=== PATIENT | male | born 1940 | race Caucasian/White ===

== ENCOUNTER 2017-05-22 21:22 | Emergency (ER) | payer MEDICARE, BC ==
[~2017-05-22] VITALS: Ht 185.4 cm; Wt 83.9 kg
[~2017-05-22 21:22] MED LIST: AMLO-96 PO; AMLO-99 PO; DOCU-416 PO; HCTZ25 PO; HYDR-317 PO; HYDR-4309 PO; LIS20 PO; OXYB10TA21 PO; PHEN200T32 PO; TAM4 PO; TAMS0.4C70 PO
--- NOTE | 2017-05-22 21:40 | ER Report ---
History and Physical Time Seen By MD: 21:39 Hx. of Stated Complaint: PATIENT HAD PROCEDURE WHERE THEY INSERTED BCG INTO BLADDER YESTERDAY AT 1100AM. PATIENT STARTED HAVING BRIGHT RED BLOOD AND SMALL CLOTS PASS IN URINE, PATIENT HAS BURING AND FREQUENCY WITH URINATION. HPI/ROS CHIEF COMPLAINT: hematuria HISTORY OF PRESENT ILLNESS: This is a 77 year old male. He is having hematuria with clots. Had BCG into bladder yesterday at [address] Zazueta's office. Had been feeling fine until tonight when he started having some pink urine that progressed to red blood and clots. He has mild suprapubic discomfort. Having frequency and burning. No fevers. No other bleeding such as blood in the stool, bruising, other bleeding. No back/flank pain. Allergies: Coded Allergies: No Known Drug Allergies (Verified , 05/22/17) Home Meds Active Scripts Amoxicillin/Pot Clav 875-125 Mg Tab (AUGMENTIN 875-125 TABLET) 1 Each Tablet, 1 TAB PO Q12H for 5 Days, #10 TAB 0 Refills Prov:CORAZON RODRÍGUEZ MD 05/22/17 Tamsulosin Hcl (TAMSULOSIN HCL) 0.4 Mg Cap.er.24h, 0.4 MG PO DAILY, #30 CAP 11 Refills Prov:JANEEN LISA TERRAZZO WORKER APPRENTICE-BC, ONC 07/10/16 Reported Medications Amlodipine Besylate (AMLODIPINE BESYLATE) 10 Mg Tablet, 1 TAB PO QPM, TAB 03/21/17 Lisinopril (Prinivil) 20 Mg Tab, 40 MG PO QPM, #20 0 Refills 04/22/08 Discontinued Reported Medications Phenazopyridine Hcl (PHENAZOPYRIDINE HCL) 200 Mg Tablet, 200 MG PO TID Y for PAIN, #20 TAB 03/24/17 Docusate Sodium (COLACE) 100 Mg Capsule, 100 MG PO BID, #30 CAPSULE 03/24/17 Oxybutynin Chloride (DITROPAN XL) 10 Mg Tab.er.24, 10 MG PO QDAY Y for BLADDER SPASMS, #10 TAB 03/24/17 Hydrocodone Bit/Acetaminophen (NORCO 5-325 TABLET) 1 Each Tablet, 1-2 EACH PO Q6H Y for PAIN, TAB 03/24/17 Reviewed Nurses Notes: Yes Hx Smoking: No (8-10 YEAR SMOKER, QUIT 30YRS AGO) Smoking Status: Former Smoker Hx Substance Use Disorder: No Hx Alcohol Use: Yes (OCC) Constitutional Vital Sign - Last 24 Hours 05/22/17 05/22/17 05/22/17 05/22/17 21:30 21:30 21:37 21:52 Temp 97.1 Pulse 94 84 77 Resp 20 B/P (MAP) 175/94 173/90 (117) Pulse Ox 91 92 94 05/22/17 05/22/17 05/22/17 05/22/17 22:01 22:07 22:22 22:30 Pulse 81 ??? B/P (MAP) 188/80 (116) 127/76 (93) Pulse Ox 92 92 05/22/17 05/22/17 05/22/17 05/22/17 22:52 23:00 23:07 23:25 Pulse 80 72 79 B/P (MAP) 136/65 (88) Pulse Ox 94 88 92 05/22/17 23:30 B/P (MAP) 155/85 (108) Physical Exam General Appearance: The patient is alert, has no immediate need for airway protection and no current signs of toxicity. Respiratory: Breathing easily, clear to auscultation. Cardiac: regular rate and rhythm Gastrointestinal: Abdomen is soft, discomfort in the suprapubic area. No CVA tenderness. Skin: No bruising. DIFFERENTIAL DIAGNOSIS: After history and physical exam differential diagnosis was considered for hematuria, will check urinalysis and CBC and PT/PTT. Medical Decision Making Data Points Result Diagram: 05/22/17222505/22/172225 Laboratory Hematology Test 05/22/17 22:04 05/22/17 22:26 Urine Color Red Urine Clarity Cloudy Urine pH 6.0 pH (4.8-9.5) Urine Specific Hume 1.011 Urine Protein 100 mg/dL (NEGATIVE) Urine Glucose (UA) 50 mg/dL (NEGATIVE) Urine Ketones Negative mg/dL (NEGATIVE) Urine Blood Large (NEGATIVE) Urine Nitrite Positive (NEGATIVE) Urine Bilirubin Negative (NEGATIVE) Urine Urobilinogen Negative mg/dL (0.2-1.9) Urine Leukocyte Esterase Moderate (NEGATIVE) Urine RBC 52253 /HPF (0-2/HPF) Urine WBC 710 /HPF (0-5/HPF) Urine Squamous Epithelial Cells None /LPF (</=FEW) Urine Bacteria Moderate /HPF (NONE-FEW) Urine Mucus Few /HPF (NONE-FEW) Red Blood Count 5.05 M/uL (4.00-5.60) Mean Corpuscular Volume 90.4 fL (80.0-96.0) Mean Corpuscular Hemoglobin 31.0 pg (26.0-33.0) Mean Corpuscular Hemoglobin Concent 34.3 g/dL (32.0-36.0) Red Cell Distribution Width 13.2 % (11.5-14.5) Mean Platelet Volume 7.6 fL (7.2-11.1) Neutrophils (%) (Auto) 86.6 % (39.4-72.5) Lymphocytes (%) (Auto) 5.5 % (17.6-49.6) Monocytes (%) (Auto) 6.9 % (4.1-12.4) Eosinophils (%) (Auto) 0.2 % (0.4-6.7) Basophils (%) (Auto) 0.8 % (0.3-1.4) Nucleated RBC Relative Count (auto) 0.0 /100WBC Neutrophils # (Auto) 9.2 K/uL (2.0-7.4) Lymphocytes # (Auto) 0.6 K/uL (1.3-3.6) Monocytes # (Auto) 0.7 K/uL (0.3-1.0) Eosinophils # (Auto) 0.0 K/uL (0.0-0.5) Basophils # (Auto) 0.1 K/uL (0.0-0.1) Nucleated RBC Absolute Count (auto) 0.00 K/uL Prothrombin Time 13.0 seconds (12.0-14.4) Prothromb Time International Ratio 0.98 Activated Partial Thromboplast Time 33 seconds (23-35) Fibrinogen 324 mg/dL (169-449) D-Dimer Quantitative (PE/DVT) 0.80 ug/ml (0-0.50) Sodium Level 136 mmol/L (137-145) Potassium Level 3.9 mmol/L (3.5-5.0) Chloride Level 101 mmol/L (98-107) Carbon Dioxide Level 24 mmol/L (22-30) Blood Urea Nitrogen 13 mg/dl (9-21) Creatinine 0.90 mg/dl (0.66-1.25) Glomerular Filtration Rate Calc > 60.0 Random Glucose 101 mg/dl (75-110) Calcium Level 9.3 mg/dl (8.4-10.2) Total Bilirubin 0.6 mg/dl (0.2-1.3) Aspartate Amino Transf (AST/SGOT) 22 U/L (0-35) Alanine Aminotransferase (ALT/SGPT) 29 U/L (0-56) Alkaline Phosphatase 68 U/L (0-126) Total Protein 7.1 gm/dl (6.3-8.2) Albumin 4.1 g/dl (3.5-5.0) Chemistry Test 05/22/17 22:04 05/22/17 22:26 Urine Color Red Urine Clarity Cloudy Urine pH 6.0 pH (4.8-9.5) Urine Specific Hume 1.011 Urine Protein 100 mg/dL (NEGATIVE) Urine Glucose (UA) 50 mg/dL (NEGATIVE) Urine Ketones Negative mg/dL (NEGATIVE) Urine Blood Large (NEGATIVE) Urine Nitrite Positive (NEGATIVE) Urine Bilirubin Negative (NEGATIVE) Urine Urobilinogen Negative mg/dL (0.2-1.9) Urine Leukocyte Esterase Moderate (NEGATIVE) Urine RBC 09155 /HPF (0-2/HPF) Urine WBC 710 /HPF (0-5/HPF) Urine Squamous Epithelial Cells None /LPF (</=FEW) Urine Bacteria Moderate /HPF (NONE-FEW) Urine Mucus Few /HPF (NONE-FEW) White Blood Count 10.7 k/uL (4.5-11.0) Red Blood Count 5.05 M/uL (4.00-5.60) Hemoglobin 15.7 g/dL (14.0-18.0) Hematocrit 45.7 % (42.0-52.0) Mean Corpuscular Volume 90.4 fL (80.0-96.0) Mean Corpuscular Hemoglobin 31.0 pg (26.0-33.0) Mean Corpuscular Hemoglobin Concent 34.3 g/dL (32.0-36.0) Red Cell Distribution Width 13.2 % (11.5-14.5) Platelet Count 251 K/uL (150-450) Mean Platelet Volume 7.6 fL (7.2-11.1) Neutrophils (%) (Auto) 86.6 % (39.4-72.5) Lymphocytes (%) (Auto) 5.5 % (17.6-49.6) Monocytes (%) (Auto) 6.9 % (4.1-12.4) Eosinophils (%) (Auto) 0.2 % (0.4-6.7) Basophils (%) (Auto) 0.8 % (0.3-1.4) Nucleated RBC Relative Count (auto) 0.0 /100WBC Neutrophils # (Auto) 9.2 K/uL (2.0-7.4) Lymphocytes # (Auto) 0.6 K/uL (1.3-3.6) Monocytes # (Auto) 0.7 K/uL (0.3-1.0) Eosinophils # (Auto) 0.0 K/uL (0.0-0.5) Basophils # (Auto) 0.1 K/uL (0.0-0.1) Nucleated RBC Absolute Count (auto) 0.00 K/uL Prothrombin Time 13.0 seconds (12.0-14.4) Prothromb Time International Ratio 0.98 Activated Partial Thromboplast Time 33 seconds (23-35) Fibrinogen 324 mg/dL (169-449) D-Dimer Quantitative (PE/DVT) 0.80 ug/ml (0-0.50) Glomerular Filtration Rate Calc > 60.0 Calcium Level 9.3 mg/dl (8.4-10.2) Total Bilirubin 0.6 mg/dl (0.2-1.3) Aspartate Amino Transf (AST/SGOT) 22 U/L (0-35) Alanine Aminotransferase (ALT/SGPT) 29 U/L (0-56) Alkaline Phosphatase 68 U/L (0-126) Total Protein 7.1 gm/dl (6.3-8.2) Albumin 4.1 g/dl (3.5-5.0) Coagulation Test 05/22/17 22:26 Prothrombin Time 13.0 seconds Prothromb Time International Ratio 0.98 Activated Partial Thromboplast Time 33 seconds Fibrinogen 324 mg/dL D-Dimer Quantitative (PE/DVT) 0.80 ug/ml Urinalysis Test 05/22/17 22:04 Urine Color Red Urine Clarity Cloudy Urine pH 6.0 pH (4.8-9.5) Urine Specific Hume 1.011 Urine Protein 100 mg/dL (NEGATIVE) Urine Glucose (UA) 50 mg/dL (NEGATIVE) Urine Ketones Negative mg/dL (NEGATIVE) Urine Blood Large (NEGATIVE) Urine Nitrite Positive (NEGATIVE) Urine Bilirubin Negative (NEGATIVE) Urine Urobilinogen Negative mg/dL (0.2-1.9) Urine Leukocyte Esterase Moderate (NEGATIVE) Urine RBC 59764 /HPF (0-2/HPF) Urine WBC 710 /HPF (0-5/HPF) Urine Squamous Epithelial Cells None /LPF (</=FEW) Urine Bacteria Moderate /HPF (NONE-FEW) Urine Mucus Few /HPF (NONE-FEW) ED Course/Re-evaluation ED Course After labs obtained, called and spoke with Dr. Zazueta regarding symptoms and the recent treatment to see if anything specific was needed based on the recent treatment. This response would not be typical for the BCG treatment, and we suspect that he could have a cystitis based on the urinalysis. A broad spectrum antibiotic was ordered and urine will be cultured. The patient will follow-up with Dr. Zazueta. Decision to Disposition Date: May 22, 2017 Decision to Disposition Time: 23:27 Depart Departure Latest Vital Signs Vital Signs Date Time Temp Pulse Resp B/P (MAP) Pulse Ox O2 Delivery O2 Flow Rate FiO2 05/22/17 23:30 155/85 (108) 05/22/17 23:25 79 92 05/22/17 21:30 97.1 20 Impression: Primary Impression: Hematuria Condition: Improved Disposition: HOME OR SELF-CARE Referrals: DAPHNE DOHERTY MD (PCP) New Scripts Amoxicillin/Pot Clav 875-125 Mg Tab (AUGMENTIN 875-125 TABLET) 1 Each Tablet 1 TAB PO Q12H for 5 Days, #10 TAB 0 Refills Prov: CORAZON RODRÍGUEZ MD 05/22/17 Patient Instructions: Hematuria (ED), Urinary Tract Infection in Men (ED) Additional Instructions: Start Augmentin 875/125 twice a day for [address] Zazueta tomorrow for further follow-up instructions. Problem Qualifiers Primary Impression: Hematuria Hematuria type: unspecified type Qualified Codes: R31.9 - Hematuria, unspecified CORAZON RODRÍGUEZ MD May 22, 2017 21:40
[2017-05-22 22:38] LABS: PLATELET COUNT, AUTOMATED 251 K/uL (150-450)
[2017-05-22 22:58] LABS: INR 0.98
[2017-05-22] MEDS ORDERED: AMOX-559 PO (23:28)
[2017-05-22 23:30] VITALS: BP 155/85
[2017-05-22] MEDS ORDERED: AMOX/CLAV 875 MG TAB PO ONE (23:30)
== END 2017-05-22 23:43 | disposition home or self-care (01) ==
LOC: ER 21:35
DX: R31.9 Hematuria, unspecified (principal); B96.20 Unspecified Escherichia coli [E. coli] as the cause of diseases classified elsewhere
CPT/HCPCS: 81001; 85025; 85049; 85379; 85384; 85610; 85730; 87077; 87088; 87186; 99284; A9270; 82040; 82247; 82310; 82374; 82435; 82565; 82947; 84075; 84132; 84155; 84295; 84450; 84460; 84520

== ENCOUNTER 2017-09-28 16:45 | Emergency (ER) | payer MEDICARE, BC ==
[~2017-09-28 16:45] MED LIST changes: +AMOX-559 PO
--- NOTE | 2017-09-28 16:55 | ER Report ---
History and Physical Time Seen By MD: 16:54 Hx. of Stated Complaint: PT PRESENT SWITH A SWOLLEN FINGER. HAD BLOOD BLISTER ON FRIDAY THAT BURST TODAY,NOW HIS FINGER IS SWOLLEN AND HURTING HPI/ROS CHIEF COMPLAINT: Finger injury HISTORY OF PRESENT ILLNESS: This is a 77-year-old male who presents to the emergency department for a left index finger injury. Patient states that Friday he pinched his finger in a vice does not think there was any foreign body and it up with a blood blister to the base of the left index finger. Then today around noon there was some swelling to the base of the left index finger around the wound, patient states that since then the finger has become to swell, uncomfortable and warm to touch. Patient denies aches, chills, nausea, vomiting , diarrhea. No chest pain or shortness of breath. REVIEW OF SYSTEMS: Respiratory: No cough, no dyspnea. Cardiovascular: No chest pain, no palpitations. Gastrointestinal: No vomiting, no abdominal pain. Musculoskeletal: As above. Integumentary: As above. Allergies: Coded Allergies: No Known Drug Allergies (Verified , 09/28/17) Home Meds Active Scripts Hydrocodone Bit/Acetaminophen (NORCO 5-325 TABLET) 1 Each Tablet, 1 EACH PO Q4- 6H Y for PAIN, #10 TAB Prov:CORRY TINAJERO [facility]-BC 09/28/17 Ondansetron (ZOFRAN ODT) 4 Mg Tab.rapdis, 4 MG PO Q6H Y for NAUSEA/VOMITING, # 20 TAB.ROBERTH Prov:CORRY TINAJERO [facility]-BC 09/28/17 Sulfamethoxazole/Trimet 800-160 Mg Tab (BACTRIM DS TABLET) 1 Each Tablet, 1 TAB PO Q12H, #19 TAB 0 Refills First dose given in the ED. Prov:CORRY TINAJERO [facility]-BC 09/28/17 Tamsulosin Hcl (TAMSULOSIN HCL) 0.4 Mg Cap.er.24h, 0.4 MG PO DAILY, #30 CAP 11 Refills Prov:JANEEN LISA EVICTION SPECIALIST-BC, ONC 07/09/17 Reported Medications Amlodipine Besylate (AMLODIPINE BESYLATE) 10 Mg Tablet, 1 TAB PO QPM, TAB 03/21/17 Lisinopril (Prinivil) 20 Mg Tab, 40 MG PO QPM, #20 0 Refills 04/22/08 Discontinued Scripts Amoxicillin/Pot Clav 875-125 Mg Tab (AUGMENTIN 875-125 TABLET) 1 Each Tablet, 1 TAB PO Q12H for 5 Days, #10 TAB 0 Refills Prov:CORAZON RODRÍGUEZ MD 05/22/17 Past Medical/Surgical History Patient has a past medical and surgical history of hypertension, GERD, prostate cancer, sciatic pain, arthritis, mapping and sees a prostate, appendectomy, TURP. Reviewed Nurses Notes: Yes Hx Smoking: No (8-10 YEAR SMOKER, QUIT 30YRS AGO) Smoking Status: Former Smoker Hx Substance Use Disorder: No Hx Alcohol Use: Yes (OCC) Constitutional Vital Sign - Last 24 Hours 09/28/17 09/28/17 09/28/17 09/28/17 16:51 16:58 17:00 18:24 Temp 98.2 Pulse 72 81 Resp 20 B/P (MAP) 162/85 162/85 (110) 168/88 (114) 128/101 (110) Pulse Ox 93 95 O2 Delivery Room Air 09/28/17 09/28/17 09/28/17 09/28/17 18:30 18:35 18:53 19:05 Pulse 82 78 84 Resp 10 B/P (MAP) 162/93 (116) 162/73 (102) Pulse Ox 94 94 87 09/28/17 09/28/17 09/28/17 09/28/17 19:20 19:25 19:30 19:35 Pulse 81 83 76 79 Resp 42 25 10 24 B/P (MAP) 149/69 (95) Pulse Ox 95 96 92 93 09/28/17 09/28/17 09/28/17 09/28/17 19:40 19:45 20:00 20:15 Pulse 77 82 78 80 Resp 5 15 B/P (MAP) 131/69 (89) Pulse Ox 94 88 93 87 09/28/17 09/28/17 09/28/17 09/28/17 20:30 20:45 20:55 20:59 Temp 99.6 Pulse 79 Pulse Ox 94 94 93 O2 Delivery Room Air Physical Exam General Appearance: The patient is alert, has no immediate need for airway protection and no current signs of toxicity. Eyes: Pupils equal and round no injection. Respiratory: Chest is non tender, lungs are clear to auscultation. Cardiac: regular rate and rhythm. Gastrointestinal: Abdomen is soft and non tender, no masses, bowel sounds normal. Musculoskeletal: Neck: Neck is supple and non tender. Extremities have full range of motion and are non tender. Skin: Erythema, edema small amount of serous drainage from the wound of the base of the left index finger. Skin is very taut. CMS intact. DIFFERENTIAL DIAGNOSIS: After history and physical exam differential diagnosis was considered for cellulitis, septic joint and foreign body. Medical Decision Making Data Points Result Diagram: 09/28/178 09/28/178 Laboratory Hematology Test 09/28/17 18:48 Red Blood Count 5.11 M/uL (4.00-5.60) Mean Corpuscular Volume 90.2 fL (80.0-96.0) Mean Corpuscular Hemoglobin 31.4 pg (26.0-33.0) Mean Corpuscular Hemoglobin Concent 34.8 g/dL (32.0-36.0) Red Cell Distribution Width 13.3 % (11.5-14.5) Mean Platelet Volume 7.9 fL (7.2-11.1) Neutrophils (%) (Auto) 83.5 % (39.4-72.5) Lymphocytes (%) (Auto) 6.5 % (17.6-49.6) Monocytes (%) (Auto) 9.1 % (4.1-12.4) Eosinophils (%) (Auto) 0.5 % (0.4-6.7) Basophils (%) (Auto) 0.4 % (0.3-1.4) Nucleated RBC Relative Count (auto) 0.2 /100WBC Neutrophils # (Auto) 7.4 K/uL (2.0-7.4) Lymphocytes # (Auto) 0.6 K/uL (1.3-3.6) Monocytes # (Auto) 0.8 K/uL (0.3-1.0) Eosinophils # (Auto) 0.0 K/uL (0.0-0.5) Basophils # (Auto) 0.0 K/uL (0.0-0.1) Nucleated RBC Absolute Count (auto) 0.02 K/uL Sodium Level 139 mmol/L (137-145) Potassium Level 3.6 mmol/L (3.5-5.0) Chloride Level 101 mmol/L (98-107) Carbon Dioxide Level 25 mmol/L (22-30) Blood Urea Nitrogen 14 mg/dl (9-21) Creatinine 1.00 mg/dl (0.66-1.25) Glomerular Filtration Rate Calc > 60.0 Random Glucose 99 mg/dl (75-110) Calcium Level 9.3 mg/dl (8.4-10.2) Total Bilirubin 0.8 mg/dl (0.2-1.3) Aspartate Amino Transf (AST/SGOT) 32 U/L (0-35) Alanine Aminotransferase (ALT/SGPT) 31 U/L (0-56) Alkaline Phosphatase 74 U/L (0-126) Total Protein 7.2 gm/dl (6.3-8.2) Albumin 4.2 g/dl (3.5-5.0) Chemistry Test 09/28/17 18:48 White Blood Count 8.9 k/uL (4.5-11.0) Red Blood Count 5.11 M/uL (4.00-5.60) Hemoglobin 16.1 g/dL (14.0-18.0) Hematocrit 46.1 % (42.0-52.0) Mean Corpuscular Volume 90.2 fL (80.0-96.0) Mean Corpuscular Hemoglobin 31.4 pg (26.0-33.0) Mean Corpuscular Hemoglobin Concent 34.8 g/dL (32.0-36.0) Red Cell Distribution Width 13.3 % (11.5-14.5) Platelet Count 196 K/uL (150-450) Mean Platelet Volume 7.9 fL (7.2-11.1) Neutrophils (%) (Auto) 83.5 % (39.4-72.5) Lymphocytes (%) (Auto) 6.5 % (17.6-49.6) Monocytes (%) (Auto) 9.1 % (4.1-12.4) Eosinophils (%) (Auto) 0.5 % (0.4-6.7) Basophils (%) (Auto) 0.4 % (0.3-1.4) Nucleated RBC Relative Count (auto) 0.2 /100WBC Neutrophils # (Auto) 7.4 K/uL (2.0-7.4) Lymphocytes # (Auto) 0.6 K/uL (1.3-3.6) Monocytes # (Auto) 0.8 K/uL (0.3-1.0) Eosinophils # (Auto) 0.0 K/uL (0.0-0.5) Basophils # (Auto) 0.0 K/uL (0.0-0.1) Nucleated RBC Absolute Count (auto) 0.02 K/uL Glomerular Filtration Rate Calc > 60.0 Calcium Level 9.3 mg/dl (8.4-10.2) Total Bilirubin 0.8 mg/dl (0.2-1.3) Aspartate Amino Transf (AST/SGOT) 32 U/L (0-35) Alanine Aminotransferase (ALT/SGPT) 31 U/L (0-56) Alkaline Phosphatase 74 U/L (0-126) Total Protein 7.2 gm/dl (6.3-8.2) Albumin 4.2 g/dl (3.5-5.0) EKG/Imaging Imaging EXAMINATION: Left hand radiographs 3 views HISTORY: Evaluate for foreign body to the left index finger. Swelling. Infection. COMPARISON: None. FINDINGS: PA, lateral and oblique views of the left hand are obtained. Bones: The cortical margins of the bones are intact. Joint spaces: Negative. Hardware: None. Alignment: Normal. Soft tissues: There is soft tissue swelling of the second finger. No radiodense foreign body is identified. IMPRESSION: Soft tissue swelling of the left second finger. No radiodense foreign body is identified. Report Dictated By: Nickolas Hawkins MD at 09/28/2017 6:41 PM Report E-Signed By: Nickolas Hawkins MD at 09/28/2017 6:43 PM WSN:[id number] ED Course/Re-evaluation Clinical Indication for ER IV: IV Access ED Course The patient was admitted to room. A history and physical were obtained. Differential diagnoses were considered. Initially I a started with a hand x-ray which was negative for foreign body. The patient and his state that the swelling and the pain in the finger have increased. I did elect to start an IV, obtained a CBC, CMP labs studies unremarkable. Patient was given 1 g IV Rocephin , 4 mg IV morphine, 4 mg IV Zofran. Patient states he is still feeling nauseous was given another dose of 4 mg IV Zofran. Patient was also given 1 hydrocodone in the emergency department as well as 1 Bactrim. Patient states that he continues to have discomfort in that finger and his is concerned that this is going to continue to get worse. I did tell them that he will likely have some increased swelling however with the IV antibiotics and oral antibiotics on board the infection will begin to tiffanie. I did tell the patient to keep the finger elevated, apply a warm compress to the finger. The patient was sent home with a home pack of hydrocodone and Bactrim as well as Zofran. A prescription was sent to the patient's pharmacy for hydrocodone and Bactrim and Zofran. I did tell the patient that I like him to return in at least 24 hours for reevaluation of the finger. I did have Dr. Rowley evaluate finger as well. Patient remained afebrile, vital signs stable while in the emergency department. The patient had no other questions or concerns at this time and was discharged home. 09/28/2017 6:37:26 pm I did go into to the patient that I didn't see a foreign body on x-ray, patient states that the pain has increased the swelling is increased and the redness has increased even since arriving to the ED. Go ahead and start an IV draw some blood and the patient some IV antibiotics and pain medication. Decision to Disposition Date: September 28, 2017 Decision to Disposition Time: 20:56 Depart Departure Latest Vital Signs Vital Signs Date Time Temp Pulse Resp B/P (MAP) Pulse Ox O2 Delivery O2 Flow Rate FiO2 09/28/17 20:59 99.6 09/28/17 20:55 93 Room Air 09/28/17 20:30 79 09/28/17 19:45 15 131/69 (89) Impression: Primary Impression: Cellulitis of right index finger Condition: Improved Disposition: HOME OR SELF-CARE Referrals: DAPHNE DOHERTY MD (PCP) New Scripts Hydrocodone Bit/Acetaminophen (NORCO 5-325 TABLET) 1 Each Tablet 1 EACH PO Q4-6H Y for PAIN, #10 TAB Prov: CORRY TINAJERO EVICTION SPECIALIST-BC 09/28/17 Ondansetron (ZOFRAN ODT) 4 Mg Tab.rapdis 4 MG PO Q6H Y for NAUSEA/VOMITING, #20 TAB.ROBERTH Prov: CORRY TINAJERO [facility] 09/28/17 Sulfamethoxazole/Trimet 800-160 Mg Tab (BACTRIM DS TABLET) 1 Each Tablet 1 TAB PO Q12H, #19 TAB 0 Refills First dose given in the ED. Prov: CORRY TINAJERO EVICTION SPECIALIST-BC 09/28/17 Patient Instructions: Cellulitis (ED) Additional Instructions: Drink plenty of fluids. Get plenty of rest. Take the Bactrim twice a day for 10 days. Return tomorrow (within 24 hours) for reevaluation of the finger and consideration of second dose of IV antibiotics. Apply a warm compress to the finger every 2 hours while awake, to encourage the wound to keep draining. Keep the hand elevated as much as possible to help with swelling. Take the hydrocodone as needed for severe pain. Follow up with your primary care provider within one week for reevaluation of the infection. The swelling and redness may remain the same or increase over the next 2-3 days. Return to the ED for any other concerns or worsening symptoms. CORRY TINAJERO [facility] September 28, 2017 16:55
[2017-09-28] MEDS ORDERED: DIPHTH/TETANUS/ACEL. PERTUSSIS IM ONLY ONE (17:10)
[2017-09-28] MEDS ORDERED: SULF-198 PO (18:12)
[2017-09-28] MEDS ORDERED: MORPHINE 4 MG/ML SDV IVP ONE (18:35)
[2017-09-28] MEDS ORDERED: cefTRIAXone 1 GM VIAL IVP ONE (18:35)
[2017-09-28] MEDS ORDERED: ONDANSETRON 4 MG/2 ML VIAL IVP ONE ×2 (18:35→20:40)
--- NOTE | 2017-09-28 18:46 | RADIOLOGY IMAGING REPORT ---
FACILITY: [facility] PATIENT NAME: Jaspreet Bedolla : 1940 MR: [id number] V: [id number] EXAM DATE: ORDERING PHYSICIAN: CORRY TINAJERO TECHNOLOGIST: Location: [facility] [place] Patient: Jaspreet Bedolla : 1940 Visit/Account:[id number] Date of Sevice: 09/28/2017 EXAMINATION: Left hand radiographs 3 views HISTORY: Evaluate for foreign body to the left index finger. Swelling. Infection. COMPARISON: None. FINDINGS: PA, lateral and oblique views of the left hand are obtained. Bones: The cortical margins of the bones are intact. Joint spaces: Negative. Hardware: None. Alignment: Normal. Soft tissues: There is soft tissue swelling of the second finger. No radiodense foreign body is iden tified. IMPRESSION: Soft tissue swelling of the left second finger. No radiodense foreign body is identified. Report Dictated By: Nickolas Hawkins MD at 09/28/2017 6:41 PM Report E-Signed By: Nickolas Hawkins MD at 09/28/2017 6:43 PM WSN:[id number]
[2017-09-28] MEDS ORDERED: TRIMETH/SULFA DS 160-800MG TAB PO ONE (19:25)
[2017-09-28] MEDS ORDERED: APAP/HYDROCODONE 325/5 TAB PO ONE (19:25)
[2017-09-28] MEDS ORDERED: ONDANSETRON 4 MG ODT TH SL ONE (19:25)
[2017-09-28] MEDS ORDERED: ACET/HYDROC 5/325MG TH ER ONLY 2 TAB/BOTTLE PO ONE (19:25)
[2017-09-28 19:29] LABS: PLATELET COUNT, AUTOMATED 196 K/uL (150-450)
[2017-09-28] MEDS ORDERED: ONDA4TAB PO (19:44)
[2017-09-28] MEDS ORDERED: HYDR-4309 PO (19:44)
[2017-09-28 19:45] VITALS: BP 131/69
== END 2017-09-28 21:06 | disposition home or self-care (01) ==
LOC: ER 17:04
DX: L03.011 Cellulitis of right finger (principal)
CPT/HCPCS: 73130; 85025; 90471; 90715; 96374; 96375; 99284; A9270; J0696; J2270; J2405; Q0162; 82040; 82247; 82310; 82374; 82435; 82565; 82947; 84075; 84132; 84155; 84295; 84450; 84460; 84520; S0119

== ENCOUNTER 2018-01-02 09:57 | Emergency (ER) | payer MEDICARE, BC ==
[~2018-01-02 09:57] MED LIST changes: +ONDA4TAB PO; +SULF-198 PO
--- NOTE | 2018-01-02 10:03 | ER Report ---
History and Physical Time Seen By MD: 10:04 HPI/ROS CHIEF COMPLAINT: yellow jacket sting HISTORY OF PRESENT ILLNESS: This is a 77 year old male. He was bitten/stung by yellow jacket on left arm and on left side of face. Having swelling of the jaw and lower lip on the left. No swelling on arm, but area of redness. No trouble breathing or swallowing. Has allergy to bee sting, but no history of reaction to yellow jackets in the past. No fevers or chills. No chest pain or heart racing. No shortness of breath. No nausea or vomiting. No problem with urination or bowel. REVIEW OF SYSTEMS: As above. Allergies: Coded Allergies: No Known Drug Allergies (Verified , 01/02/18) Home Meds Active Scripts Prednisone (PREDNISONE) 20 Mg Tablet, 40 MG PO QDAY for 2 Days, #4 TAB 0 Refills Prov:CORAZON RODRÍGUEZ MD 01/02/18 Tamsulosin Hcl (TAMSULOSIN HCL) 0.4 Mg Cap.er.24h, 0.4 MG PO DAILY, #30 CAP 11 Refills Prov:JANEEN LISA [employer], ONC 07/09/17 Reported Medications Amlodipine Besylate (AMLODIPINE BESYLATE) 10 Mg Tablet, 1 TAB PO QPM, TAB 03/21/17 Lisinopril (Prinivil) 20 Mg Tab, 40 MG PO QPM, #20 0 Refills 04/22/08 Discontinued Scripts Hydrocodone Bit/Acetaminophen (NORCO 5-325 TABLET) 1 Each Tablet, 1 EACH PO Q4- 6H PRN for PAIN, #10 TAB Prov:CORRY TINAJERO [facility] 09/28/17 Ondansetron (ZOFRAN ODT) 4 Mg Tab.rapdis, 4 MG PO Q6H PRN for NAUSEA/VOMITING, #20 TAB.ROBERTH Prov:CORRY TINAJERO [facility] 09/28/17 Sulfamethoxazole/Trimet 800-160 Mg Tab (BACTRIM DS TABLET) 1 Each Tablet, 1 TAB PO Q12H, #19 TAB 0 Refills First dose given in the ED. Prov:CORRY TINAJERO [facility] 09/28/17 Reviewed Nurses Notes: Yes Hx Smoking: No (8-10 YEAR SMOKER, QUIT 30YRS AGO) Smoking Status: Former Smoker Hx Substance Use Disorder: No Hx Alcohol Use: Yes (OCC) Constitutional Vital Sign - Last 24 Hours 01/02/18 01/02/18 01/02/18 01/02/18 10:01 10:01 10:15 10:30 Temp 98.5 Pulse 86 77 Resp 14 B/P (MAP) 168/79 168/79 (108) 143/76 (98) Pulse Ox 90 91 91 O2 Delivery Room Air 01/02/18 01/02/18 01/02/18 01/02/18 10:45 11:00 11:15 11:21 Pulse 68 67 B/P (MAP) 124/69 (87) 143/75 (97) Pulse Ox 90 89 91 Physical Exam General Appearance: The patient is alert. No acute distress. Eyes: Pupils are equal, round. No pallor, injection or icterus. ENT: Mucous membranes are moist. Normal oral mucosa except for swelling of left lower lip and face. Posterior oropharynx is normal without swelling of throat or tongue. Neck: Supple and non tender. Respiratory: Lungs are clear to auscultation. Cardiovascular: Regular rate and rhythm. No murmurs, gallops or rubs. Neurological: Alert and oriented x3. No focal neurologic deficits. Skin: Warm and dry. Red and swelling on left face. Some redness on left arm just distal to elbow from bite/sting, but no swelling. Musculoskeletal: Extremities are nontender. DIFFERENTIAL DIAGNOSIS: After history and physical exam, differential diagnosis was considered for yellow jacket bite/sting with swelling of left face, but no respiratory compromise. Medical Decision Making ED Course/Re-evaluation Clinical Indication for ER IV: Hydration, IV Access ED Course Improvement after IV Solu-Medrol, Benadryl, and Pepcid. Still some swelling in the left lower jaw and lower lip but improved and redness and less swelling. No trouble swallowing or trouble with breathing. Home on prednisone, Benadryl, and Pepcid Decision to Disposition Date: Jan 02, 2018 Decision to Disposition Time: 11:14 Depart Departure Latest Vital Signs Vital Signs Date Time Temp Pulse Resp B/P (MAP) Pulse Ox O2 Delivery O2 Flow Rate FiO2 01/02/18 11:21 143/75 (97) 01/02/18 11:15 67 91 8/31/18 10:01 98.5 14 Room Air Impression: Primary Impression: Insect bite or sting Condition: Improved Disposition: HOME OR SELF-CARE Referrals: DAPHNE DOHERTY MD (PCP) New Scripts Prednisone (PREDNISONE) 20 Mg Tablet 40 MG PO QDAY for 2 Days, #4 TAB 0 Refills Prov: CORAZON RODRÍGUEZ MD 01/02/18 Patient Instructions: Insect Bite or Sting (ED) Additional Instructions: Take Prednisone 20mg tablets, take 2 tablets once daily for 2 days. Take Benadryl 25mg tablets, 1-2 every 6 hours as needed for redness or swelling. Take Pepcid 20mg tablets, take 1 every 12 hours for 2 days. Return for any trouble with breathing, swallowing or worsening swelling. CORAZON RODRÍGUEZ MD Jan 02, 2018 10:03
[2018-01-02] MEDS ORDERED: NS(*) 0.9% 1000 ML BAG 1,000 ML IV ONE (10:10)
[2018-01-02] MEDS ORDERED: methylPREDNIS SUCC 125 MG/2ML IVP ONE (10:10)
[2018-01-02] MEDS ORDERED: FAMOTIDINE(*) 20MG/50ML PREMIX 50 ML IVPB ONE (10:10)
[2018-01-02] MEDS ORDERED: diphenhydrAMINE 50 MG/ML VIAL IVP ONE (10:10)
[2018-01-02] MEDS ORDERED: PRED20TA6 PO (11:14)
[2018-01-02 11:21] VITALS: BP 143/75
== END 2018-01-02 11:29 | disposition home or self-care (01) ==
LOC: ER 10:03
DX: T63.461A Toxic effect of venom of wasps, accidental (unintentional), initial encounter (principal); W57.XXXA Bitten or stung by nonvenomous insect and other nonvenomous arthropods, initial encounter
CPT/HCPCS: 96361; 96365; 96375; 99284; J1200; J2930; J3490; J7030

== ENCOUNTER → 2018-07-08 | Outpatient (REF) | payer MEDICARE, BC ==
[~2018-07-08] MED LIST changes: +AMLO-125 PO; +AMLO-127 PO; -AMLO-96 PO; -AMLO-99 PO; -HYDR-4309 PO; +HYDR-653 PO; +PRED20TA6 PO
== END ==
LOC: ZZSENDIN 12:00
PROVIDERS: ATTEND Urology
DX: C67.9 Malignant neoplasm of bladder, unspecified (principal)
CPT/HCPCS: 88108

== ENCOUNTER → 2018-10-13 | Outpatient (REF) | payer MEDICARE, BC | LOC: ZZSENDIN 12:00 | PROVIDERS: ATTEND Urology | DX: C67.9 Malignant neoplasm of bladder, unspecified (principal); R31.9 Hematuria, unspecified | CPT/HCPCS: 88108 ==